=== PATIENT | female | born 1970 | race Caucasian/White ===

== ENCOUNTER 2023-06-17 05:05 | Day surgery (SDC) | payer OTHER ==
[2023-06-16 08:42] VITALS: BMI 36.3
[2023-06-17 12:06] VITALS: TEMP 97.2
[2023-06-17 12:50] VITALS: BP 123/72; PULSE 73; RESP 11
[2023-06-17 13:59] LABS: ALBUMIN 3.5 g/dl (3.4-5.0)
[2023-06-17 14:01] LABS: BILIRUBIN,DIRECT 0.2 mg/dL (0.0-0.2)
[2023-06-17 14:04] LABS: BILIRUBIN,TOTAL 0.6 mg/dL (0.2-1); TOT PROT 7.1 g/dl (6.4-8.2)
== END 2023-06-17 13:07 | disposition home or self-care (01) ==
LOC: JASU-ENDO 05:05
PROVIDERS: ATTEND Internal Medicine Gastroenterology
PROC: 0DJD8ZZ Inspection of Lower Intestinal Tract, Via Natural or Artificial Opening Endoscopic (ICD-10-PCS; principal; 2023-06-17 11:00)
DX: Z12.11 Encounter for screening for malignant neoplasm of colon (principal); K64.8 Other hemorrhoids
CPT/HCPCS: 36415; 80076; 83516

== ENCOUNTER 2023-07-08 04:43 | Day surgery (SDC) | payer OTHER ==
[2023-07-02 13:48] VITALS: BMI 35.5
[2023-07-08 10:51] VITALS: BP 133/74; PULSE 62; RESP 15; TEMP 98
== END 2023-07-08 11:03 | disposition home or self-care (01) ==
LOC: JASU-ENDO 04:43
PROVIDERS: ATTEND Internal Medicine Gastroenterology
PROC: 0DB78ZX Excision of Stomach, Pylorus, Via Natural or Artificial Opening Endoscopic, Diagnostic (ICD-10-PCS; 2023-07-08)
PROC: 0DB68ZX Excision of Stomach, Via Natural or Artificial Opening Endoscopic, Diagnostic (ICD-10-PCS; 2023-07-08)
PROC: 0DB98ZX Excision of Duodenum, Via Natural or Artificial Opening Endoscopic, Diagnostic (ICD-10-PCS; principal; 2023-07-08 10:45)
DX: K29.50 Unspecified chronic gastritis without bleeding (principal)
CPT/HCPCS: 88305-TC; 88342-TC

== ENCOUNTER 2023-12-04 10:58 | Emergency (ER) | payer OTHER ==
[2023-12-04 11:23] VITALS: BP 127/84; PULSE 75; RESP 18; TEMP 98.3; BMI 38.7
[2023-12-04] MEDS ORDERED: IBUPROFEN 600 MG TABLET (FP) PO ONE ×2 (13:14→13:32)
[2023-12-04] MEDS ORDERED: IBUPROFEN 400 MG TABLET (FP) PO ONE (13:31)
[2023-12-04] MEDS ORDERED: ACETAMINOPHEN 500 MG TABLET (FP) PO ONE (13:53)
[2023-12-04] MEDS ORDERED: ACETAMINOPHEN 500 MG TABLET (FP) ONE (13:55)
== END 2023-12-04 15:02 | disposition home or self-care (01) ==
LOC: JER 10:58
DX: N64.4 Mastodynia (principal)
CPT/HCPCS: 76642-TC-RT; 99284-25

== ENCOUNTER 2023-12-27 14:43 | Emergency (ER) | payer OTHER ==
[2023-12-27 14:50] VITALS: BMI 38.6
[2023-12-27] MEDS ORDERED: KETOROLAC TROMETHAMINE 30 MG/1 ML VIAL ONE (16:28)
[2023-12-27] MEDS: KETOROLAC TROMETHAMINE 30 MG/1 ML VIAL IVPUSH ONE (17:08)
[2023-12-27 17:17] LABS: BASO % 0.4 % (0-2.0); EOS % 1.4 % (0-4.5); HEMATOCRIT 45.5 % (32.4-45.2); HEMOGLOBIN 15.4 GM/dL (10.7-15.3); LYMPH % 35.8 % (8-40); MCH 31.5 pg (25.7-33.7); MCHC 33.9 g/dl (32.0-36.0); MEAN CELL VOLUME 92.7 fl (80-96); MEAN PLT VOLUME 10.2 fl (7.5-11.1); MONO % 6.1 % (3.8-10.2); NEUT % 56.3 % (42.8-82.8); PLATELET COUNT 256 10^3/uL (134-434); RBC 4.91 M/mm3 (3.60-5.2); RDW 14.1 % (11.6-15.6); WHITE BLOOD COUNT 7.6 K/mm3 (4.0-10.0)
[2023-12-27 17:28] LABS: POTASSIUM 4.4 mmol/L (3.5-5.1)
[2023-12-27 17:30] LABS: BLOOD UREA NITROGEN 12.8 mg/dL (7-18); CALCIUM 9.6 mg/dL (8.5-10.1)
[2023-12-27 17:34] LABS: CREATININE 0.7 mg/dL (0.55-1.3)
[2023-12-27 17:35] LABS: BILIRUBIN,TOTAL 0.3 mg/dL (0.2-1); TOT PROT 8.1 g/dl (6.4-8.2)
[2023-12-27 21:06] VITALS: BP 111/74; PULSE 80; RESP 18; TEMP 98
== END 2023-12-27 21:07 | disposition home or self-care (01) ==
LOC: JER 14:43 → JERFT 14:43 → JER 21:07
PROC: 3E0333Z Introduction of Anti-inflammatory into Peripheral Vein, Percutaneous Approach (ICD-10-PCS; principal; 2023-12-27)
DX: N64.4 Mastodynia (principal)
CPT/HCPCS: 36415; 71260-TC; 76705-TC; 80053; 84484; 84703; 85025; 85379; 93005; 93010; 99285-25; Q9967